=== PATIENT | female | born 1980 | race Caucasian/White ===

== ENCOUNTER 2019-09-19 20:52 | Emergency (ER) | payer BC, OTHER ==
[2019-09-19] MEDS ORDERED: METOCLOPRAMIDE HCL ORAL SOLN 10 MG/10 ML UDCUP PO ONE (21:02)
[2019-09-19] MEDS ORDERED: MAG HYDROX/AL HYDROX/SIMETH SUSP 30 ML UDCUP PO ONE (21:02)
[2019-09-19] MEDS ORDERED: ONDANSETRON HCL INJ/PF 4 MG/2 ML SDV IV ONE (21:02)
[2019-09-19] MEDS ORDERED: NORMAL SALINE 1000 ML 1,000 ML IV ONE (21:02)
[2019-09-19] MEDS ORDERED: LIDOCAINE 2% VISCOUS SOLN 15 ML UDCUP PO ONE (21:02)
--- NOTE | 2019-09-19 21:07 | ER Document Report ---
ED General - General Chief Complaint: Swallowed Foreign Body Stated Complaint: SWALLOWED FOREIGN BODY Primary Care Provider: ALBERTO ZUNIGA MD [ACTIVE STAFF] - Follow up as needed Mode of Arrival: Ambulatory Information source: Patient Notes: 39-year-old female arrives by her car she was driving. Patient was chewing on some Chinese alfaro from cookout and choked on it feeling like it was stuck pointing to the manubrium but within 20 minutes of arrival it feels like it stuck now around her breastbone patient points to her epigastric area. Patient has some coughing sensation. She denies any prior history of similar symptoms. Patient denies any diabetes or high blood pressure or prior history of GERD or esophageal problems. She denies any sore throat or fever chills or cough or cold prior to the symptoms. TRAVEL OUTSIDE OF THE [place] IN LAST 30 DAYS: No - Related Data Allergies/Adverse Reactions: Sulfa (Sulfonamide Antibiotics) Allergy (Verified 09/19/19 22:36) Past Medical History - General Information source: Patient - Social History Smoking Status: Current Every Day Smoker Cigarette use (# per day): Yes Chew tobacco use (# tins/day): No Smoking Education Provided: Yes Frequency of alcohol use: None Drug Abuse: None Lives with: Family Family History: Reviewed & Not Pertinent Patient has suicidal ideation: No Patient has homicidal ideation: No Review of Systems - Review of Systems Constitutional: No symptoms reported EENT: No symptoms reported Cardiovascular: See HPI, Chest pain Respiratory: See HPI, Cough Gastrointestinal: See HPI, Nausea Genitourinary: No symptoms reported Female Genitourinary: No symptoms reported Musculoskeletal: No symptoms reported Skin: No symptoms reported Hematologic/Lymphatic: No symptoms reported Neurological/Psychological: No symptoms reported Physical Exam - Vital signs Vitals: Pulse Resp BP Pulse Ox 99 20 91/52 L 98 09/19/19 20:53 09/19/19 20:53 09/19/19 20:53 09/19/19 20:53 - General General appearance: Anxious - HEENT Head: Normocephalic, Atraumatic Eyes: Normal Pupils: PERRL Pharynx: Normal Neck: Normal - Respiratory Respiratory status: Tripod position Chest status: Tender - epigastric Breath sounds: Normal Chest palpation: Normal - Cardiovascular Rhythm: Regular Heart sounds: Normal auscultation Murmur: No - Abdominal Inspection: Normal Distension: No distension Bowel sounds: Normal Tenderness: Nontender Organomegaly: No organomegaly - Rectal Stool: Other - deferred - Genitourinary External exam: Other - deferred - Back Back: Normal - Extremities General upper extremity: Normal inspection, Nontender, Normal color, Normal ROM, Normal temperature General lower extremity: Normal inspection, Nontender, Normal color, Normal ROM, Normal temperature, Normal weight bearing. No: Jamel's sign - Neurological Neuro grossly intact: Yes Cognition: Normal Orientation: AAOx4 [place] Coma Scale Eye Opening: Spontaneous [place] Coma Scale Verbal: Oriented [place] Coma Scale Motor: Obeys Commands [place] Coma Scale Total: 15 Speech: Normal Motor strength normal: LUE, RUE, LLE, RLE Sensory: Normal - Psychological Associated symptoms: Anxious - Skin Skin Temperature: Warm Skin Moisture: Dry Course - Vital Signs Vital signs: Temp Pulse Resp BP Pulse Ox 98.5 F 99 20 107/62 100 09/19/19 21:12 09/19/19 20:53 09/19/19 20:53 09/19/19 22:01 09/19/19 22:01 - Laboratory Result Diagrams: 09/19/19 22:45 09/19/19 22:45 Laboratory results interpreted by me: 09/19/19 09/19/19 22:45 22:45 WBC 11.4 H Hgb 11.7 L Hct 33.8 L Chloride 109 H Glucose 157 H Total Protein 6.1 L - Diagnostic Test Radiology reviewed: Reports reviewed Critical Care Note - Critical Care Note Total time excluding time spent on procedures (mins): 90 Comments: Patient much improved by [address] scan reveals hiatal hernia. Patient repor ts after she ate the Chinese alfaro which was hot she swallowed it down her esophagus and then felt the spasm in her mid chest. She later felt in her epigastric area. I suspect achalasia at the time but now is much improved. I advised [id number] Mylanta to Pepcid and Prilosec. 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 Encourage fluids and you may follow- up with Dr. Villareal if symptoms persist. He is a surgical doctor. You will have hiatal hernia for the rest your life. Try to chew all foods up thoroughly and swallow with liquids if possible. Keep the meals small and the amount in the mouth small as well. Referrals: ALBERTO ZUNIGA MD [ACTIVE STAFF] - Follow up as needed
[2019-09-19 23:04] LABS: ABSOLUTE EOSINOPHILS # (AUTO) 0.3 10^3/uL (0.0-0.6); ABSOLUTE MONOCYTES (AUTO) 1.1 10^3/uL (0.1-1.4); BASOPHILS % (AUTO) 0.4 % (0-2); EOSINOPHILS % (AUTO) 2.7 % (0-6); HEMATOCRIT 33.8 % (36.0-47.0); HEMOGLOBIN 11.7 g/dL (12.0-15.5); LYMPHOCYTES % (AUTO) 17.2 % (13-45); MEAN CORPUSCULAR HEMOGLOBIN 30.1 pg (27.0-33.4); MEAN CORPUSCULAR HGB CONC 34.7 g/dL (32.0-36.0); MEAN CORPUSCULAR VOLUME 87 fl (80-97); MONOCYTES % (AUTO) 9.3 % (3-13); PLATELET COUNT 256 10^3/uL (150-450); RED CELL DISTRIBUTION WIDTH 12.9 % (11.5-14.0); SEGMENTED NEUTROPHILS % (AUTO) 70.4 % (42-78); TOTAL CELLS COUNTED % (AUTO) 100 %; WHITE BLOOD COUNT 11.4 10^3/uL (4.0-10.5)
[2019-09-19 23:29] LABS: ALBUMIN 3.7 g/dL (3.5-5.0); ALKALINE PHOSPHATASE 40 U/L (38-126); ANION GAP 5 (5-19); ASPARTATE AMINO TRANSFERASE 18 U/L (14-36); BILIRUBIN,TOTAL 0.3 mg/dL (0.2-1.3); BLOOD UREA NITROGEN 12 mg/dL (7-20); CALCIUM 8.7 mg/dL (8.4-10.2); CARBON DIOXIDE 24 mmol/L (22-30); CHLORIDE 109 mmol/L (98-107); GLUCOSE 157 mg/dL (75-110); POTASSIUM 3.9 mmol/L (3.6-5.0); TOTAL PROTEIN 6.1 g/dL (6.3-8.2)
--- NOTE | 2019-09-19 23:41 | RADIOLOGY REPORT (SQ) ---
EXAM DESCRIPTION: Contrast-enhanced CT scan of the chest. CLINICAL HISTORY: 39 years Female; epigastric pain TECHNIQUE: CT of the chest with intravenous contrast. All CT scans at this facility use dose modulation, iterative reconstruction, and/or weight based dosing when appropriate to reduce radiation dose to as low as reasonably achievable. COMPARISON: None. FINDINGS: Chest: Lungs: Lungs are clear. No focal consolidation. No groundglass opacification. No pulmonary nodules or masses. Pleura: No effusions or pneumothorax Mediastinum: Heart size is normal. No pericardial abnormality. Probable small sliding hiatal hernia. No mediastinal or hilar lymphadenopathy. The great vessels are unremarkable. Thoracic esophagus is unremarkable. Bones: Osseous structures are normal. Soft tissues are unremarkable. Upper Abdomen: No acute process is seen in the visualized portion of the upper abdomen. IMPRESSION: 1. Small sliding hiatal hernia. 2. Unremarkable CT scan of the chest. No pneumonia or edema. No acute process.
[2019-09-20 01:08] VITALS: BP 111/72
== END 2019-09-20 01:10 | disposition home or self-care (01) ==
LOC: ER 20:52
DX: K44.9 Diaphragmatic hernia without obstruction or gangrene (principal); K22.0 Achalasia of cardia; R05 Cough; R07.9 Chest pain, unspecified; R11.0 Nausea; F17.210 Nicotine dependence, cigarettes, uncomplicated
CPT/HCPCS: 99285; 96361; 96374; 36415; 85025; 80053; 71260; J3490; J2405; J7030